=== PATIENT | female | born 1940 | race Caucasian/White ===

== ENCOUNTER → 2022-01-29 | Outpatient (CLI) | payer MEDICARE ==
--- NOTE | 2022-01-29 20:22 | MR ---
EXAMINATION TYPE: MR francine/lspine wo con DATE OF EXAM: 01/29/2022 COMPARISON: None HISTORY: Severe mid/lower back pain, worse on left side. Multiplanar multiecho imaging of the thoracic and lumbar spine performed with no contrast. There is mid and upper thoracic moderate levoscoliosis. There is a moderate thoracolumbar dextroscoli otic deformity. There is approximate 75 degree thoracolumbar dextroscoliosis. No significant thoracic or lumbar compression deformity. There is no evidence of thoracic or lumbar paraspinal mass. The tho racic spinal cord has fairly normal signal pattern. No edema. No evidence of thoracic spinal stenosis . No thoracic paraspinal mass. No evidence of focal bone destruction in the thoracic and lumbar spine . There is no lumbar paraspinal mass. There is mild hypertrophic lumbar facet arthropathy. No evidence of lumbar spinal stenosis. No evidence of any significant lumbar disc herniation. No evidence of any significant thoracic disc herniation. There is small posterior disc bulging at L4-5 and L5-S1 without impingement on the spinal canal. IMPRESSION: Moderate thoracic and lumbar scoliotic deformity as above. No evidence of thoracic or lumbar spinal s tenosis. No significant disc herniation. No compression fracture.
== END | disposition home or self-care (01) ==
LOC: RADMRIMAIN 13:00
PROVIDERS: ATTEND Orthopaedic Surgery
DX: M41.86 Other forms of scoliosis, lumbar region (principal); M41.84 Other forms of scoliosis, thoracic region; M54.50 Low back pain, unspecified; M54.6 Pain in thoracic spine
CPT/HCPCS: 72146; 72148